=== PATIENT | female | born 1960 | race African-American/Black ===

== ENCOUNTER 2020-10-05 08:13 | Emergency (ER) | payer MEDICAID ==
[2020-10-05] MEDS ORDERED: Lorazepam 2 MG/ML VIAL ONE (09:41)
--- NOTE | 2020-10-05 10:05 | RAD ---
AP CHEST: Date: 10/05/2020 HISTORY: Trauma. FINDINGS/IMPRESSION: The lungs appear well aerated and clear. No infiltrate or pneumothorax. Heart and mediastinum unremar kable for this projection. Osseous structures appear intact. POS: AGW
[2020-10-05] MEDS ORDERED: risperiDONE 0.25 MG TAB PO SCH (11:00)
--- NOTE | 2020-10-05 11:07 | CT ---
CT BRAIN WITHOUT CONTRAST: Date: 10/05/2020 HISTORY: Fall, trauma, headache, [place]'s Chorea. COMPARISON: 10/02/2019 and 04/26/2019. FINDINGS: Changes of cortical atrophy are again seen. Ventricular size is stable and the basilar cisterns are p atent. No evidence of acute infarct, hemorrhage, midline shift, or abnormal extra-axial fluid collections ar e seen. The bony calvarium is intact. The visualized paranasal sinuses and mastoid air cells are well aerated. IMPRESSION: No CT evidence of acute intracranial process. POS: OFF
--- NOTE | 2020-10-05 11:39 | RAD ---
Exam: XR Tib Fib Lt Leg 2 View HISTORY: Distal left lower extremity pain. Injury after a fall. COMPARISON: None FINDINGS: There is osteophytosis involving the medial and lateral joint compartments with suggestion of minimal narrowing of the joint compartment. No fracture or dislocation is seen along the left tibia or fibula. Subcutaneous soft tissue swelling seen anterior to the distal tibia. Calcifications are seen in the subcutaneous soft tissues anteriorly likely related to phleboliths. IMPRESSION: 1. No acute osseous abnormality. 2. Osteoarthritis left knee. 3. Subcutaneous soft tissue swelling anterior to distal tibial diaphysis.
[2020-10-05 11:48] LABS: #Eosinphils 0.1 thou/uL (0.0-0.7); #Lymphocytes 2.3 thou/uL (1.20-3.40); #Monocytes 0.6 thou/uL (0.11-0.59); #Neutrophils 5.1 thou/uL (1.40-6.50); %Basophils 0.2 % (0.0-1.0); %Eosinophils 1.8 % (0.0-10.0); %Lymphocytes 28.3 % (21.0-51.0); %Monocytes 7.3 % (0.0-10.0); %Neutrophils 62.5 % (42.0-75.0); Hemoglobin 12.6 g/dL (12.0-16.0); Mean Corpuscular HGB CONC 32.3 g/dL (32.0-36.0); Mean Corpuscular Volume 80.7 fL (78.0-98.0); Platelet Count 177 thou/uL (130-400); RBC Distribution Width 11.8 % (11.5-14.5); Red Blood Cell (RBC) Count 4.84 mill/uL (4.20-5.40); White Blood Cell (WBC) Count 8.1 thou/uL (4.8-10.8)
[2020-10-05 11:58] LABS: ALT (SGPT) 11 U/L (8-55); AST (SGOT) 18 U/L (5-34); Albumin 3.9 g/dL (3.5-5.0); Alkaline Phosphatase 63 U/L (40-110); Anion Gap 13 mmol/L (10-20); BUN (Urea Nitrogen) 16 mg/dL (9.8-20.1); Bilirubin, Total 0.7 mg/dL (0.2-1.2); Calc. Creatinine Clearance 0 mL/min (70-130); Calcium 9.1 mg/dL (7.8-10.44); Carbon Dioxide 25 mmol/L (22-29); Chloride 109 mmol/L (98-107); Globulin 3.6 g/dL (2.4-3.5); Glucose 91 mg/dL (70-105); Potassium 4.2 mmol/L (3.5-5.1); Protein, Total 7.5 g/dL (6.0-8.3); Sodium 143 mmol/L (136-145)
== END 2020-10-05 17:10 | disposition home or self-care (01) ==
LOC: EDBD 08:13 → ERS 08:13
DX: S00.83XA Contusion of other part of head, initial encounter (principal); W06.XXXA Fall from bed, initial encounter
CPT/HCPCS: 36415; 70450; 71045; 80053; 85025; 96372; J2060

== ENCOUNTER 2021-03-26 15:30 | Emergency (ER) | payer MEDICAID, OTHER | END 2021-03-26 19:17 | disposition home or self-care (01) | LOC: ERS 15:30 | DX: J06.9 Acute upper respiratory infection, unspecified (principal) | CPT/HCPCS: 71045 ==